=== PATIENT | male | born 1960 | race Caucasian/White ===

== ENCOUNTER 2024-04-10 12:56 | Emergency (ER) | payer MEDICARE, SELFPAY ==
[2024-04-10] VITALS (7 sets, daily range): BP systolic 146–160; BP diastolic 77–117; PULSE 83–88; BMI 25.6
[2024-04-10 13:22] LABS: % Basophils 0.6 % (0-2); % Immature Granulocytes 0.5 % (0-0.5); % Lymphocytes 18.9 % (20.5-51.1); Absolute Basophils 0.1 10^3/uL (0-0.2); Absolute Eosinophils 0.2 10^3/uL (0-0.7); Absolute Lymphocytes 1.5 10^3/uL (1.2-3.4); Absolute Monocytes 0.6 10^3/uL (0.1-0.6); Absolute Neutrophils 5.5 10^3/uL (1.4-6.5); Hematocrit 40.9 % (39.0-52.0); Hemoglobin 15.1 g/dL (13.0-18.0); Mean Corp Hgb Conc. 36.9 g/dL (33.0-37.0); Mean Corpuscular Hgb 31.5 pg (27.0-31.0); Mean Corpuscular Volume 85.2 fL (80.0-94.0); Mean Platelet Volume 10.3 fL (7.4-10.4); Nucleated Red Blood Cells % 0 % (-); Platelet Count 255 10^3/uL (130-400); White Blood Cell Count 7.9 10^3/uL (4.8-10.8)
[2024-04-10 13:36] LABS: ALT (SGPT) 20 U/L (0-50); AST (SGOT) 23 U/L (17-59); Albumin 4.5 g/dl (3.5-5.0); Alkaline Phosphatase 72 U/L (38-126); Blood Urea Nitrogen 13 mg/dl (9-20); Calcium 9.2 mg/dl (8.4-10.2); Carbon Dioxide 25 mmol/L (22-30); Chloride 104 mmol/L (98-107); Glucose 121 mg/dl (70-99); Potassium 3.6 mmol/L (3.5-5.1); Sodium 138 mmol/L (135-145); Total Bilirubin 0.9 mg/dl (0.2-1.3); Total Protein 7.1 g/dl (6.3-8.2); eGFR > 60.00
[2024-04-10 13:47] LABS: Troponin I < 0.012 ng/ml
--- NOTE | 2024-04-10 16:18 | ED.GENMED ---
History of Present Illness
General
Chief Complaint: Dizziness
Source: patient
Exam Limitations: none
Time Seen by Provider: 04/10/24 16:05
Nursing documentation reviewed up to this point in time: agreed with
History of Present Illness
History of Present Illness:
Patient to ED for eval of substernal fluttering. States he woke on Wednesday and felt lightheaded. Symptom was brief but since then he reports intermittent fluttering in chest. Denie any SOB, CP/pressure. Denies headache, vision changes.
Eating/drinking/sleeping/working normally. No prior history of same.
Past History
Past History
ED Past Medical History: None
ED Past Surgical History: Other (skin cyst, retina repair)
Social History
Tobacco: Smoker (occasional)
Alcohol: Occasional (rare)
Drug: Marijuana (nightly for sleep)
Review of Systems
Review of Systems
Allergies reviewed?: Yes
All Other Systems: ROS reviewed and negative except as documented in HPI and ROS
Constitutional: Reports no symptoms
EENT: Reports no symptoms
Respiratory: Reports no symptoms
Cardiac: Reports palpitations
ABD/GI: Reports no symptoms
: Reports no symptoms
Musculoskeletal: Reports no symptoms
Skin: Reports no symptoms
Neurological: Reports dizzy (Lightheaded Wednesday AM)
Psychiatric: Reports no symptoms
Phy Exam
General Physical Exam
General Presentation: well appearing and no apparent distress
General age: appears stated age
General Skin: warm and dry
General Habitus: normal
General Mental: alert
Cardiovascular Exam
Cardiovascular Exam: regular rate/rhythm
Pulmonary Exam
Pulmonary Exam: lungs clear and no respiratory distress
Musculoskeletal Exam
Musculoskeletal Exam: full ROM and neuro vasc intact
Skin Exam
Skin Exam: normal color, warm/dry and no rash
Psychiatric Exam
Psychiatric Exam: normal mood/affect
Course
Orders/Labs/Results
Orders:
Orders
04/10/24 12:58
EKG [Electrocardiogram (*1)] Urgent
Reason for Study: Palpitations
EKG- Treatment ONCE
04/10/24 13:14
Complete Blood Count/With Diff Urgent
Comprehensive Metabolic Panel Urgent
TSH Reflex To Free T4 Urgent
Comment: TSH REFLEX ADDED ON BY FLOOR 4:15PM 04-10-24
Troponin I Urgent
04/10/24 16:17
Add On- LAB Urgent
Tests Added?: TSH reflex T4
04/10/24 16:18
Orthostatic VS- Treatment ONCE
Abnormal Lab Results
04/10/24
13:14
MCH 31.5 H pg
(27.0-31.0)
Lymphocytes % 18.9 L %
(20.5-51.1)
Glucose 121 H mg/dl
(70-99)
04/10/24 13:14
04/10/24 13:14
Vital Signs
Initial and Last Documented VS:
Initial Vital Signs
Temp Pulse Resp BP Pulse Ox
98.1 F 92 18 158/105 96
04/10/24 13:07 04/10/24 13:07 04/10/24 13:07 04/10/24 13:07 04/10/24 13:07
Last Documented Vital Signs
Temp Pulse Resp BP Pulse Ox
98.1 F 74 20 151/101 94
04/10/24 13:07 04/10/24 17:15 04/10/24 17:15 04/10/24 17:00 04/10/24 17:15
*Pulse Oximetry
Patient hypoxic: no
*EKG
Interpretation: normal
Rate: normal
Rhythm: sinus
*Critical Care Note
Total Time (30-74mins, 75-104mins- exclusive of procedures): Not Applicable
Update Note
Update Note:
Labs, EKG reviewed with patient. No concerning findings on exam. No abnormal rhythms noted on monitor. No dizziness while in dept. He is discharged home and will follow up with PCP.Given instructions on s/s to return to ED and he is agreeable to
plan.
ED Attending Note
-
Portions of this chart may have been created with voice recognition software.� Occasional wrong word or��sound alike� substitutions may have occurred due to the inherent limitations of voice recognition software.
Discharge Plan
Departure
Patient Disposition: Home (Routine Discharge)
Date of Disposition: 04/10/24
Time of Disposition: 17:34
Patient with high blood pressure during this ER visit?: No
Condition: Good
Covid-19: Not Applicable
Discharge Problem:
Heart palpitations
Instructions: Palpitations
Referrals:
UNKNOWN - PT DOES,NOT KNOW [Family Provider] -
Activity Restrictions/Additional Instructions:
Follow up with your family doctor. Holter monitoring is recommended to identify any abnormal heartbeats, frequent palptitations
Interventions
Interventions:
*Risk Screen - Suicide Last Done: 04/10/24 13:10
*General Assessment Last Done: 04/10/24 13:10
*Neglect/Abuse Screening Last Done: 04/10/24 13:10
ED- Fall Risk Assessment Last Done: 04/10/24 14:31
*ED COVID-19 Vaccine History Last Done: 04/10/24 14:31
ED- Neurological Assessment Last Done: 04/10/24 14:31
ED- Cardiac Assessment Last Done: 04/10/24 14:31
ED Swallowing Screen Last Done: 04/10/24 14:31
Discharge Date and Time
Print Language: [place]
[2024-04-10 17:23] LABS: TSH Reflex To Free T4 1.61 uIU/ml (0.47-4.68)
== END 2024-04-10 17:41 | disposition home or self-care (01) ==
LOC: EMR 12:56
PROVIDERS: Emergency Medicine; EMERGENCY PHYSICIAN Student in an Organized Health Care Education/Training Program
DX: R00.2 Palpitations (principal); R42 Dizziness and giddiness; I49.8 Other specified cardiac arrhythmias; F17.210 Nicotine dependence, cigarettes, uncomplicated
CPT/HCPCS: 99284; 80053; 84443; 84484; 85025; 93005